=== PATIENT | female | born 1970 | race Caucasian/White ===

== ENCOUNTER → 2016-11-16 | Outpatient (CLI) | payer OTHER ==
[2016-11-16 08:49] LABS: BUN 12 mg/dl (7-24); EST GLOM FILT AFRICAN AMERICAN > 60 ml/min; GLUCOSE 93 mg/dL (65-99)
[2016-11-16 09:00] LABS: HEMOGLOBIN A1c 5.4 % (4.8-5.6)
== END | disposition home or self-care (01) ==
LOC: LAB 07:13
PROVIDERS: Internal Medicine Endocrinology, Diabetes & Metabolism
DX: E88.81 Metabolic syndrome and other insulin resistance (principal); R63.5 Abnormal weight gain

== ENCOUNTER → 2017-03-02 | Outpatient (CLI) | payer OTHER ==
[2017-03-02 08:23] LABS: BUN 14 mg/dl (7-24); CREATININE 0.78 mg/dL (0.55-1.02)
[2017-03-02 09:31] LABS: VITAMIN D, 25-HYDROXY 25.8 ng/mL (30-100)
== END | disposition home or self-care (01) ==
LOC: LAB 07:35
PROVIDERS: Internal Medicine Endocrinology, Diabetes & Metabolism
DX: E55.9 Vitamin D deficiency, unspecified (principal); E88.81 Metabolic syndrome and other insulin resistance; R94.6 Abnormal results of thyroid function studies; R63.5 Abnormal weight gain; L65.9 Nonscarring hair loss, unspecified; R53.83 Other fatigue

== ENCOUNTER → 2018-03-15 | Outpatient (CLI) | payer OTHER ==
[2018-03-15 11:43] LABS: BUN 7 mg/dl (7-24); CHOLESTEROL 142 mg/dL (<200); CREATININE 0.72 mg/dL (0.55-1.02); HDL CHOLESTEROL 51 mg/dl (40-60); LDL CHOLESTEROL 69 mg/dL (9-159); SGOT/AST 30 IU/L (3-35); SGPT/ALT 29 U/L (12-78); TRIGLYCERIDES 112 mg/dl (<150); VLDL CHOLESTEROL 22 mg/dL (6-40)
[2018-03-15 11:50] LABS: VITAMIN D, 25-HYDROXY 22.8 ng/mL (30-100)
== END ==
LOC: LAB 10:32
PROVIDERS: Internal Medicine Endocrinology, Diabetes & Metabolism
DX: E03.9 Hypothyroidism, unspecified (principal); E53.9 Vitamin B deficiency, unspecified; E55.9 Vitamin D deficiency, unspecified; E88.81 Metabolic syndrome and other insulin resistance

== ENCOUNTER 2018-08-27 14:58 | Emergency (ER) | payer OTHER ==
[~2018-08-27] VITALS: Ht 160 cm; Wt 80.7 kg
[2018-08-27 15:23] LABS: BILIRUBIN NEGATIVE (NEGATIVE); BLOOD 3+ (NEGATIVE); CLARITY CLEAR (CLEAR); COLOR YELLOW (YELLOW); GLUCOSE TRACE (NEGATIVE); KETONE 1+ (NEGATIVE); LEUKO ESTERASE NEGATIVE (NEGATIVE); NITRITE NEGATIVE (NEGATIVE); PH 5.5 (5.0-9.0); SPECIFIC GRAVITY 1.025 (1.005-1.030); UROBILINOGEN 0.2 E.U./dl (0.2-1.0)
[2018-08-27 15:30] LABS: BACTERIA 2+; MUCOUS 1+; WBC 0-2 wbc/hpf (0-5)
[2018-08-27 15:49] LABS: BASO % 0.8 % (0.0-1.0); HEMATOCRIT 43.4 % (37.0-47.0); HEMOGLOBIN 14.3 g/dl (12.0-16.0); LYMPH # 0.7 10*3/uL (1.3-4.4); LYMPH % 12.3 % (27.0-41.0); MEAN CELL VOLUME 89.9 fl (81.0-99.0); MEAN CORPUSCULAR HGB 29.6 pg (27.0-31.0); MEAN CORPUSCULAR HGB CONC 32.9 g/dl (33.0-37.0); MEAN PLATELET VOLUME 9.7 fl (9.6-12.3); MONO # 0.4 10*3/uL (0.1-1.0); MONO % 7.6 % (3.0-9.0); NEUT # 4.1 10*3/uL (2.3-7.9); NEUT % 78.5 % (47.0-73.0); PLATELET COUNT AUTOMATED 205 10*3/uL (130-400); RED BLOOD COUNT 4.83 10*6/uL (4.10-5.10); RED CELL DISTRI WIDTH 12.9 % (0-14.5); WHITE BLOOD COUNT 5.3 10*3/uL (4.8-10.8)
[2018-08-27 16:07] LABS: ALBUMIN 3.5 gm/dl (3.1-4.5); ALKALINE PHOSPHATASE 66 U/L (45-117); BUN 5 mg/dl (7-24); CHLORIDE 104 mmol/L (98-107); CREATININE 0.95 mg/dL (0.55-1.02); LIPASE 78 U/L (73-393); POTASSIUM 3.5 mmol/L (3.5-5.1); SGOT/AST 34 IU/L (3-35); SGPT/ALT 46 U/L (12-78); SODIUM 138 mmol/L (136-145); TOTAL PROTEIN 7.3 gm/dL (6.4-8.2)
[2018-08-27] MEDS ORDERED: ZOFRAN4 MG PO (19:01)
[2018-08-27] MEDS ORDERED: KEFLEX500 M1 PO (19:01)
== END 2018-08-27 19:09 | disposition home or self-care (01) ==
LOC: ED 14:58
PROVIDERS: Physician Assistant
DX: N39.0 Urinary tract infection, site not specified (principal); Z90.49 Acquired absence of other specified parts of digestive tract; Z98.51 Tubal ligation status

== ENCOUNTER → 2018-09-28 | Outpatient (CLI) | payer OTHER ==
[~2018-09-28] MED LIST: KEFLEX500 M1 PO; ZOFRAN4 MG PO
[2018-09-28 09:17] LABS: BUN 10 mg/dl (7-24); CHOLESTEROL 183 mg/dL (<200); CREATININE 0.86 mg/dL (0.55-1.02); HDL CHOLESTEROL 61 mg/dl (40-60); SGOT/AST 14 IU/L (3-35); SGPT/ALT 27 U/L (12-78); TRIGLYCERIDES 131 mg/dl (<150)
[2018-09-28 10:19] LABS: VITAMIN D, 25-HYDROXY 62.1 ng/mL (30-100)
[2018-09-30 08:07] LABS: LDL CHOLESTEROL (DIRECT) 116 mg/dL (0-99)
== END | disposition home or self-care (01) ==
LOC: LAB 08:23
PROVIDERS: Internal Medicine Endocrinology, Diabetes & Metabolism
DX: E55.9 Vitamin D deficiency, unspecified (principal); E88.81 Metabolic syndrome and other insulin resistance; E53.9 Vitamin B deficiency, unspecified; E03.9 Hypothyroidism, unspecified

== ENCOUNTER → 2019-04-06 | Outpatient (CLI) | payer OTHER ==
[2019-04-06 07:54] LABS: BUN 12 mg/dl (7-24); CHLORIDE 108 mmol/L (98-107); CHOLESTEROL 208 mg/dL (<200); HDL CHOLESTEROL 51 mg/dl (40-60); LDL CHOLESTEROL 130 mg/dL (9-159); PHOSPHOROUS 3.5 mg/dL (2.5-4.9); POTASSIUM 4.3 mmol/L (3.5-5.1); SGOT/AST 17 IU/L (3-35); SGPT/ALT 31 U/L (12-78); SODIUM 141 mmol/L (136-145); TRIGLYCERIDES 134 mg/dl (<150); VLDL CHOLESTEROL 27 mg/dL (6-40)
[2019-04-06 08:33] LABS: VITAMIN D, 25-HYDROXY 47.1 ng/mL (30-100)
== END | disposition home or self-care (01) ==
LOC: LAB 06:55
PROVIDERS: Internal Medicine Endocrinology, Diabetes & Metabolism
DX: E88.81 Metabolic syndrome and other insulin resistance (principal); E55.9 Vitamin D deficiency, unspecified; E53.9 Vitamin B deficiency, unspecified; E03.9 Hypothyroidism, unspecified; L68.0 Hirsutism; L65.9 Nonscarring hair loss, unspecified

== ENCOUNTER → 2019-08-19 | Outpatient (CLI) | payer OTHER | END | disposition home or self-care (01) | LOC: RAD 13:26 | DX: M79.671 Pain in right foot (principal); M67.471 Ganglion, right ankle and foot; R23.9 Unspecified skin changes ==

== ENCOUNTER → 2019-08-31 | Outpatient (CLI) | payer OTHER | END | disposition home or self-care (01) | LOC: US 15:14 | DX: D25.0 Submucous leiomyoma of uterus (principal) ==

== ENCOUNTER → 2019-09-03 | Outpatient (CLI) | payer OTHER ==
[~2019-09-03] MED LIST changes: +GLUCOPHAGE500 M1 PO; +METFORMIN HYDR500 MG PO; +Synthroid,Levo25 MCG PO; +VITAMIN D250 MC1 PO
[2019-09-03 08:22] LABS: BUN 13 mg/dl (7-24); CHLORIDE 105 mmol/L (98-107); CHOLESTEROL 220 mg/dL (<200); CREATININE 0.99 mg/dL (0.55-1.02); HDL CHOLESTEROL 57 mg/dl (40-60); LDL CHOLESTEROL 122 mg/dL (9-159); POTASSIUM 4.6 mmol/L (3.5-5.1); SGOT/AST 16 IU/L (3-35); SGPT/ALT 36 U/L (12-78); SODIUM 138 mmol/L (136-145); TRIGLYCERIDES 205 mg/dl (<150); VLDL CHOLESTEROL 41 mg/dL (6-40)
[2019-09-03 09:04] LABS: VITAMIN D, 25-HYDROXY 73.7 ng/mL (30-100)
== END | disposition home or self-care (01) ==
LOC: MAMMO 07:06 → LAB 07:06 → MAMMO 07:30
PROVIDERS: Internal Medicine Endocrinology, Diabetes & Metabolism
DX: Z12.31 Encounter for screening mammogram for malignant neoplasm of breast (principal); E88.81 Metabolic syndrome and other insulin resistance; E55.9 Vitamin D deficiency, unspecified; E53.9 Vitamin B deficiency, unspecified; E03.9 Hypothyroidism, unspecified; L68.0 Hirsutism; L65.9 Nonscarring hair loss, unspecified

== ENCOUNTER → 2019-09-10 | Day surgery (SDC) | payer OTHER ==
[~2019-09-10] VITALS: Ht 160 cm; Wt 85.7 kg
[2019-09-10 10:33] VITALS: BP 113/75
[2019-09-10 11:30] VITALS: BP 113/59
[2019-09-10 11:43] VITALS: BP 110/68
[2019-09-10 11:57] VITALS: BP 131/84
== END | disposition home or self-care (01) ==
LOC: SDC 09-08 08:45
DX: L82.1 Other seborrheic keratosis (principal); L98.9 Disorder of the skin and subcutaneous tissue, unspecified; K21.9 Gastro-esophageal reflux disease without esophagitis; G43.909 Migraine, unspecified, not intractable, without status migrainosus; Z98.890 Other specified postprocedural states; Z79.899 Other long term (current) drug therapy

== ENCOUNTER → 2020-01-11 | Outpatient (CLI) | payer OTHER ==
[2020-01-11 08:34] LABS: BUN 10 mg/dl (7-24); CHLORIDE 107 mmol/L (98-107); CHOLESTEROL 196 mg/dL (<200); CREATININE 0.75 mg/dL (0.55-1.02); HDL CHOLESTEROL 56 mg/dl (40-60); LDL CHOLESTEROL 114 mg/dL (9-159); SGOT/AST 21 IU/L (3-35); SGPT/ALT 33 U/L (12-78); SODIUM 135 mmol/L (136-145); TRIGLYCERIDES 130 mg/dl (<150); VLDL CHOLESTEROL 26 mg/dL (6-40)
[2020-01-11 09:15] LABS: VITAMIN D, 25-HYDROXY 75.1 ng/mL (30-100)
== END | disposition home or self-care (01) ==
LOC: LAB 07:39
PROVIDERS: ATTEND Internal Medicine Endocrinology, Diabetes & Metabolism
DX: E55.9 Vitamin D deficiency, unspecified (principal); E88.81 Metabolic syndrome and other insulin resistance; E53.9 Vitamin B deficiency, unspecified; E03.9 Hypothyroidism, unspecified; L68.0 Hirsutism; L65.9 Nonscarring hair loss, unspecified

== ENCOUNTER → 2020-01-26 | Outpatient (CLI) | payer OTHER | END | disposition home or self-care (01) | LOC: RAD 07:39 | PROVIDERS: ATTEND Nurse Practitioner Family | DX: M25.551 Pain in right hip (principal); M54.41 Lumbago with sciatica, right side ==

== ENCOUNTER → 2020-04-23 | Outpatient (CLI) | payer OTHER ==
[2020-04-23 10:11] LABS: BUN 10 mg/dl (7-24); CHOLESTEROL 187 mg/dL (<200); CREATININE 0.82 mg/dL (0.55-1.02); HDL CHOLESTEROL 62 mg/dl (40-60); LDL CHOLESTEROL 100 mg/dL (9-159); SGOT/AST 14 IU/L (3-35); SGPT/ALT 35 U/L (12-78); TRIGLYCERIDES 124 mg/dl (<150); VLDL CHOLESTEROL 25 mg/dL (6-40)
== END | disposition home or self-care (01) ==
LOC: LAB 09:07
PROVIDERS: ATTEND Internal Medicine Endocrinology, Diabetes & Metabolism
DX: E55.9 Vitamin D deficiency, unspecified (principal); E88.81 Metabolic syndrome and other insulin resistance; E53.9 Vitamin B deficiency, unspecified; E03.9 Hypothyroidism, unspecified; L68.0 Hirsutism; L65.9 Nonscarring hair loss, unspecified

== ENCOUNTER → 2020-08-18 | Outpatient (CLI) | payer OTHER ==
[2020-08-18 08:58] LABS: BUN 8 mg/dl (7-24); CHLORIDE 107 mmol/L (98-107); CHOLESTEROL 209 mg/dL (<200); CREATININE 0.85 mg/dL (0.55-1.02); LDL CHOLESTEROL 121 mg/dL (9-159); POTASSIUM 4.1 mmol/L (3.5-5.1); SGOT/AST 21 IU/L (3-35); SGPT/ALT 35 U/L (12-78); SODIUM 138 mmol/L (136-145); TRIGLYCERIDES 148 mg/dl (<150)
== END | disposition home or self-care (01) ==
LOC: LAB 07:34
PROVIDERS: ATTEND Internal Medicine Endocrinology, Diabetes & Metabolism
DX: E03.9 Hypothyroidism, unspecified (principal); E55.9 Vitamin D deficiency, unspecified; E88.81 Metabolic syndrome and other insulin resistance; L68.0 Hirsutism; L65.9 Nonscarring hair loss, unspecified; E56.8 Deficiency of other vitamins

== ENCOUNTER → 2020-11-24 | Outpatient (CLI) | payer OTHER ==
[2020-11-24 08:53] LABS: BUN 15 mg/dl (7-24); CHOLESTEROL 209 mg/dL (<200); CREATININE 0.89 mg/dL (0.55-1.02); LDL CHOLESTEROL 125 mg/dL (9-159); SGOT/AST 17 IU/L (3-35); SGPT/ALT 29 U/L (12-78); TRIGLYCERIDES 157 mg/dl (<150)
[2020-11-24 09:39] LABS: VITAMIN D, 25-HYDROXY 54.9 ng/mL (30-100)
== END | disposition home or self-care (01) ==
LOC: LAB 07:58
PROVIDERS: ATTEND Internal Medicine Endocrinology, Diabetes & Metabolism
DX: E03.9 Hypothyroidism, unspecified (principal); E88.81 Metabolic syndrome and other insulin resistance; E55.9 Vitamin D deficiency, unspecified; L68.0 Hirsutism; E53.8 Deficiency of other specified B group vitamins; L65.9 Nonscarring hair loss, unspecified; Z79.899 Other long term (current) drug therapy

== ENCOUNTER → 2020-12-05 | Outpatient (CLI) | payer OTHER | END | disposition home or self-care (01) | LOC: RAD 08:44 | PROVIDERS: ATTEND Nurse Practitioner Family | DX: M79.672 Pain in left foot (principal) ==

== ENCOUNTER → 2021-02-08 | Outpatient (CLI) | payer OTHER | END | disposition home or self-care (01) | LOC: RAD 08:30 | PROVIDERS: ATTEND Nurse Practitioner Family | DX: M79.672 Pain in left foot (principal) ==

== ENCOUNTER → 2021-04-01 | Outpatient (CLI) | payer OTHER ==
[2021-04-01 08:43] LABS: BUN 13 mg/dl (7-24); CHLORIDE 107 mmol/L (98-107); CHOLESTEROL 198 mg/dL (<200); POTASSIUM 4.2 mmol/L (3.5-5.1); SGOT/AST 18 IU/L (3-35); SGPT/ALT 37 U/L (12-78); SODIUM 139 mmol/L (136-145); TRIGLYCERIDES 107 mg/dl (<150)
[2021-04-01 09:11] LABS: VITAMIN D, 25-HYDROXY 48.6 ng/mL (30-100)
[2021-04-02 10:06] LABS: LDL CHOLESTEROL (DIRECT) 121 mg/dL (0-99)
== END | disposition home or self-care (01) ==
LOC: LAB 07:27
PROVIDERS: Internal Medicine Endocrinology, Diabetes & Metabolism; ATTEND Chiropractor
DX: M54.50 Low back pain, unspecified (principal); E88.81 Metabolic syndrome and other insulin resistance; E55.9 Vitamin D deficiency, unspecified; E03.9 Hypothyroidism, unspecified; L68.0 Hirsutism; L65.9 Nonscarring hair loss, unspecified; E53.8 Deficiency of other specified B group vitamins

== ENCOUNTER → 2021-11-20 | Outpatient (CLI) | payer OTHER ==
[2021-11-20 08:22] LABS: BASO # 0.1 10*3/uL (0.0-0.1); BASO % 1.1 % (0.0-1.0); EOS # 0.2 10*3/uL (0.0-0.4); EOS % 2.5 % (1.0-4.0); HEMATOCRIT 43.4 % (37.0-47.0); LYMPH # 2.3 10*3/uL (1.3-4.4); LYMPH % 31.4 % (27.0-41.0); MEAN CELL VOLUME 89.5 fl (81.0-99.0); MEAN CORPUSCULAR HGB 28.9 pg (27.0-31.0); MEAN CORPUSCULAR HGB CONC 32.3 g/dl (33.0-37.0); MEAN PLATELET VOLUME 9.6 fl (9.6-12.3); MONO # 0.6 10*3/uL (0.1-1.0); MONO % 8.5 % (3.0-9.0); NEUT # 4.1 10*3/uL (2.3-7.9); NEUT % 55.8 % (47.0-73.0); PLATELET COUNT AUTOMATED 274 10*3/uL (130-400); RED BLOOD COUNT 4.85 10*6/uL (4.10-5.10); RED CELL DISTRI WIDTH 13.1 % (0-14.5); WHITE BLOOD COUNT 7.3 10*3/uL (4.8-10.8)
[2021-11-20 08:40] LABS: BUN 11 mg/dl (7-24); CHLORIDE 107 mmol/L (98-107); CHOLESTEROL 215 mg/dL (<200); CREATININE 0.83 mg/dL (0.55-1.02); POTASSIUM 3.9 mmol/L (3.5-5.1); SGOT/AST 17 IU/L (3-35); SGPT/ALT 25 U/L (12-78); SODIUM 140 mmol/L (136-145); TRIGLYCERIDES 95 mg/dl (<150)
[2021-11-20 08:42] LABS: ALKALINE PHOSPHATASE 81 U/L (45-117); LDL CHOLESTEROL 123 mg/dL (9-159); TOTAL PROTEIN 7.3 gm/dL (6.4-8.2)
== END | disposition home or self-care (01) ==
LOC: LAB 07:45
PROVIDERS: ATTEND Nurse Practitioner Family
DX: E11.65 Type 2 diabetes mellitus with hyperglycemia (principal); E66.9 Obesity, unspecified; Z82.49 Family history of ischemic heart disease and other diseases of the circulatory system

== ENCOUNTER → 2022-03-07 | Outpatient (CLI) | payer OTHER ==
[2022-03-07 08:24] LABS: BASO # 0.1 10*3/uL (0.0-0.1); BASO % 1.4 % (0.0-1.0); EOS # 0.2 10*3/uL (0.0-0.4); EOS % 2.7 % (1.0-4.0); HEMATOCRIT 42.5 % (37.0-47.0); LYMPH # 3.2 10*3/uL (1.3-4.4); LYMPH % 56.6 % (27.0-41.0); MEAN CELL VOLUME 91.2 fl (81.0-99.0); MEAN CORPUSCULAR HGB 29.4 pg (27.0-31.0); MEAN CORPUSCULAR HGB CONC 32.2 g/dl (33.0-37.0); MEAN PLATELET VOLUME 9.5 fl (9.6-12.3); MONO # 0.5 10*3/uL (0.1-1.0); MONO % 9.6 % (3.0-9.0); NEUT # 1.7 10*3/uL (2.3-7.9); NEUT % 29.3 % (47.0-73.0); PLATELET COUNT AUTOMATED 238 10*3/uL (130-400); RED BLOOD COUNT 4.66 10*6/uL (4.10-5.10); RED CELL DISTRI WIDTH 13.5 % (0-14.5); WHITE BLOOD COUNT 5.6 10*3/uL (4.8-10.8)
[2022-03-07 08:59] LABS: ALKALINE PHOSPHATASE 87 U/L (45-117); BUN 14 mg/dl (7-24); CHLORIDE 109 mmol/L (98-107); CHOLESTEROL 223 mg/dL (<200); CREATININE 0.86 mg/dL (0.55-1.02); LDL CHOLESTEROL 133 mg/dL (9-159); POTASSIUM 4.7 mmol/L (3.5-5.1); SGPT/ALT 48 U/L (12-78); SODIUM 141 mmol/L (136-145); TOTAL PROTEIN 7.3 gm/dL (6.4-8.2); TRIGLYCERIDES 186 mg/dl (<150)
== END | disposition home or self-care (01) ==
LOC: LAB 08:06
PROVIDERS: ATTEND Nurse Practitioner Family
DX: E11.65 Type 2 diabetes mellitus with hyperglycemia (principal)

== ENCOUNTER → 2022-07-21 | Outpatient (CLI) | payer OTHER ==
[2022-07-21 07:49] LABS: BASO # 0.1 10*3/uL (0.0-0.1); BASO % 1.2 % (0.0-1.0); EOS # 0.1 10*3/uL (0.0-0.4); EOS % 2.5 % (1.0-4.0); HEMATOCRIT 41.7 % (37.0-47.0); LYMPH # 2.3 10*3/uL (1.3-4.4); LYMPH % 44.9 % (27.0-41.0); MEAN CELL VOLUME 90.1 fl (81.0-99.0); MEAN CORPUSCULAR HGB 29.8 pg (27.0-31.0); MEAN CORPUSCULAR HGB CONC 33.1 g/dl (33.0-37.0); MEAN PLATELET VOLUME 9.5 fl (9.6-12.3); MONO # 0.5 10*3/uL (0.1-1.0); MONO % 9.1 % (3.0-9.0); NEUT # 2.2 10*3/uL (2.3-7.9); NEUT % 41.5 % (47.0-73.0); PLATELET COUNT AUTOMATED 266 10*3/uL (130-400); RED BLOOD COUNT 4.63 10*6/uL (4.10-5.10); RED CELL DISTRI WIDTH 13.1 % (0-14.5); WHITE BLOOD COUNT 5.2 10*3/uL (4.8-10.8)
[2022-07-21 09:20] LABS: ALKALINE PHOSPHATASE 84 U/L (46-116); BUN 10 mg/dl (9-23); CHLORIDE 105 mmol/L (98-107); CHOLESTEROL 197 mg/dL (<200); LDL CHOLESTEROL 113 mg/dL (9-159); POTASSIUM 4.2 mmol/L (3.4-5.1); SGPT/ALT 33 U/L (10-49); TOTAL PROTEIN 6.9 gm/dL (6.0-8.0); TRIGLYCERIDES 135 mg/dl (<150)
[2022-07-21 10:16] LABS: THYROID STIM HORMONE (HS) 1.734 uIU/ml (0.550-4.780)
== END | disposition home or self-care (01) ==
LOC: LAB 07:21
PROVIDERS: ATTEND Nurse Practitioner Family
DX: E11.65 Type 2 diabetes mellitus with hyperglycemia (principal); E88.81 Metabolic syndrome and other insulin resistance; E03.9 Hypothyroidism, unspecified

== ENCOUNTER → 2022-09-25 | Outpatient (CLI) | payer OTHER ==
[2022-09-25 10:57] LABS: BASO # 0.1 10*3/uL (0.0-0.1); BASO % 0.5 % (0.0-1.0); EOS # 0.1 10*3/uL (0.0-0.4); EOS % 0.6 % (1.0-4.0); HEMATOCRIT 42.8 % (37.0-47.0); LYMPH # 2.2 10*3/uL (1.3-4.4); LYMPH % 19.8 % (27.0-41.0); MEAN CELL VOLUME 89.5 fl (81.0-99.0); MEAN CORPUSCULAR HGB 29.9 pg (27.0-31.0); MEAN CORPUSCULAR HGB CONC 33.4 g/dl (33.0-37.0); MEAN PLATELET VOLUME 9.9 fl (9.6-12.3); MONO % 8.7 % (3.0-9.0); NEUT # 7.7 10*3/uL (2.3-7.9); NEUT % 69.9 % (47.0-73.0); PLATELET COUNT AUTOMATED 232 10*3/uL (130-400); RED BLOOD COUNT 4.78 10*6/uL (4.10-5.10); RED CELL DISTRI WIDTH 12.4 % (0-14.5)
[2022-09-25 11:21] LABS: ALKALINE PHOSPHATASE 80 U/L (46-116); BUN 11 mg/dl (9-23); CHLORIDE 106 mmol/L (98-107); POTASSIUM 4.1 mmol/L (3.4-5.1); SGPT/ALT 28 U/L (10-49); TOTAL PROTEIN 7.3 gm/dL (6.0-8.0)
== END | disposition home or self-care (01) ==
LOC: LAB 10:17
PROVIDERS: ATTEND Nurse Practitioner Family
DX: R19.7 Diarrhea, unspecified (principal)